=== PATIENT | female | born 1990 | race Caucasian/White ===

== ENCOUNTER → 2017-01-22 | Outpatient (CLI) | payer BC ==
[~2017-01-22] MED LIST: BCPILLS PO; SPR28
== END | disposition home or self-care (01) ==
LOC: C.PAPS 15:13
PROVIDERS: ATTEND Obstetrics & Gynecology
DX: Z01.419 Encounter for gynecological examination (general) (routine) without abnormal findings (principal)

== ENCOUNTER 2024-06-06 09:02 | Inpatient (IN) ==
[2024-06-06] MEDS ORDERED: LIDOCAINE 1% LOCAL 20 ML VIAL INFIL PRN (10:19)
--- NOTE | 2024-06-06 10:22 | History & Physical Report ---
Date of Service June 06, 2024 Assessment & Plan (1) : Plan: Admit to L&D. EFM/toco. Labs. Not sure if she'd like to do epidural or not - would like to be able to get up and move around. Discussed plan - wants to try to avoid interventions if possible, such as pitocin. Discussed post-delivery pitocin to prevent hemorrhage, agrees to this. History of Present Illness Chief Complaint: contractions Primary Care Provider: NO PCP 33yo @ 40 2/7, contractions overnight. No leaking. No bleeding. + movement. Allergies Allergy/AdvReac Type Severity Reaction Status Date / Time No Known Allergies Allergy NONE Verified 06/06/24 09:18 Home Medications Medication Instructions Recorded Confirmed Type vits no.124-ferrous fum 1 tab PO DAILY 06/06/24 06/06/24 History 27 mg iron-folic acid 800 mcg tablet ( Vitamin) Patient History Medical History (Updated 06/06/24 @ 10:23 by Callie Arreaga, DO) Chlamydia 2012 Miscarriage Acute costochondritis History of chicken pox Varicella vaccine Surgical History (Updated 01/01/24 @ 12:05 by Yessica Galeano MD, FACOG) S/P breast biopsy, left fibroadenoma S/P wisdom tooth extraction Family History (Updated 06/06/24 @ 09:24 by Laura Mares RN) Father Hyperlipidemia Grandfather (Maternal) Lung disease lung cancer Stroke Grandmother (Paternal) No problems noted. Grandfather (Paternal) Lung disease lung cancer Denies family history of Ovarian cancer Prostate cancer Breast cancer Colorectal cancer Social History (Updated 12/30/23 @ 14:47 by Mercedez Magana LPN) Smoking Status: Former smoker Do You Dip or Chew Tobacco: No; Hx Alcohol Use: No Hx Substance Use: No Preferred Language: Maltese [employer] Manager Required: No Beliefs That Will Affect Care: Yarsani marital status: marital status details: Spouse Iván Mcdonald ([phone] Current Living Situation: Spouse Current Living Situation Comment: lives with and 3 dogs current occupational status: employed 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 No s/s chorio or abruption. Skin: no rashes, warm and dry Psychiatric: A+Ox3, euthymic affect Results & Data Vital Signs (Past 12 Hours) Vital Signs Temp Pulse Resp BP 06/06/24 09:11 88 121/82 06/06/24 09:10 18 06/06/24 09:10 36.4 C L 18 Coding Level of Care Code None Diagnoses Z34.90
[2024-06-06 11:06] LABS: Hematocrit (blood only) 42.1 % (37.0-47.0); Hemoglobin 14.1 g/dl (12.0-16.0); Mean Corpuscular Hemoglobin 26.7 pg (25.0-34.0); Mean Corpuscular Hgb Conc 33.5 g/dL (32.0-36.0); Mean Corpuscular Volume 79.7 fL (80.0-100.0); Mean Platelet Volume 10.5 fL (9.4-12.4); Platelet Count 196 K/uL (130-400); RDW Coefficient of Variation 14.2 % (11.5-14.5); RDW Standard Deviation 40.8 fL (36.4-46.3); Red Blood Count 5.28 M/uL (4.20-5.40); White Blood Count 14.02 K/ul (4.8-10.8)
[2024-06-06] MEDS: SODIUM CHLORIDE 0.9% 1,000 ML IV SCH (12:30)
[2024-06-06] MEDS ORDERED: NALOXONE HCL 0.4 MG/1 ML VIAL/CARP IV PRN (12:40)
[2024-06-06] MEDS ORDERED: fentaNYL citrate PF 100 MCG/2 ML VIAL EPI PRN (12:40)
[2024-06-06] MEDS ORDERED: NALOXONE HCL 1 MG in SODIUM CHLORIDE 0.9% 1,000 ML IV PRN (12:40)
[2024-06-06] MEDS ORDERED: LIDOCAINE 2% MPF LOCAL 5 ML VIAL EPI PRN (12:40)
[2024-06-06] MEDS ORDERED: NALBUPHINE HCL INJ 10 MG/ML AMP IV PRN (12:40)
[2024-06-06] MEDS ORDERED: ePHEDrine sulfate 50 MG/ML AMP IV PRN (12:40)
[2024-06-06] MEDS ORDERED: diphenhydrAMINE 50 MG/ML VIAL IV PRN (12:40)
[2024-06-06] MEDS ORDERED: BUPIVACAINE 0.25% PF 30 ML VIAL EPI PRN (12:40)
[2024-06-06] MEDS ORDERED: ROPIVACAINE 0.5% PF 5 MG/ML 20 ML VIAL EPI PRN (12:40)
[2024-06-06] MEDS ORDERED: SODIUM CHLORIDE 0.9% PF INJ 10 ML VIAL EPI PRN (12:40)
--- NOTE | 2024-06-06 12:46 | Anesthesiology Consultation ---
Date of Service June 06, 2024 Assessment & Plan Chart Review Chart Review: Patient NOT seen in Pre Admission Testing and Acceptable Risk for Labor Epidural Consults Requested none ASA ASA2 Proposed Anesthesia Anesthesia Type: Labor Epidural Risk / Benefits Reviewed With: PT / POA / Parent / Guardian, Accepts Plan and Informed Consent Obtained History Height/Weight Height: 5 ft 9 in Weight: 81.465 kg Allergies Allergy/AdvReac Type Severity Reaction Status Date / Time No Known Allergies Allergy NONE Verified 06/06/24 09:18 Medications Home Medications Medication Instructions Recorded Confirmed Last Taken vits no.124-ferrous fum 1 tab PO DAILY 06/06/24 06/06/24 Unknown 27 mg iron-folic acid 800 mcg tablet ( Vitamin) NPO Date Last Intake of Fluids: 06/06/24 Time Last Intake of Fluids: 12:00 Date Last Intake of Solids: 06/06/24 Time Last Intake of Solids: 07:00 Past Medical History Medical History Chlamydia 2011 Miscarriage Acute costochondritis History of chicken pox Varicella vaccine Exercise / Class Metabolic Activity 1 > 8 Run/Swim/Ski/Tennis Past Family History Family History Father Hyperlipidemia Grandfather (Maternal) Lung disease lung cancer Stroke Grandmother (Paternal) No problems noted. Grandfather (Paternal) Lung disease lung cancer Denies family history of Ovarian cancer Prostate cancer Breast cancer Colorectal cancer Past Surgical History Surgical History S/P breast biopsy, left fibroadenoma S/P wisdom tooth extraction Past Anesthesia History No Hx of Anesthesia Complications, No Family Hx of Anesthesia Complications and Other History of PONV No Hx of PONV and No Hx of Motion Sickness Social History Smoking Status: Former smoker Do You Dip or Chew Tobacco: No Hx Alcohol Use: No Hx Substance Use: No Review of Systems ROS Unobtainable: All systems reviewed & are unremarkable except as noted in HPI & below Musculoskeletal: no muscle weakness Physical Exam Vital Signs Last Vital Signs Temp 36.4 C L 06/06/24 09:10 Pulse 72 06/06/24 12:40 Resp 18 06/06/24 09:10 BP 121/82 06/06/24 09:11 Pulse Ox 100 06/06/24 12:40 ENMT Mouth: no TMJ abnormality Thyromental Distance: > or= 3.5 Finger Breadths Mallampati Class: II Neck normal visual inspection and trachea midline; neck extension not limited Respiratory normal respiratory effort Auscultation: lungs clear to auscultation bilaterally Cardiovascular Rate/Rhythm: regular rate and regular rhythm Heart Sounds: no murmur Musculoskeletal Spine: normal cervical ROM Extremities: full ROM of extremities Neurologic moves all extremities Psychiatric Orientation: alert and oriented x 3 Testing Laboratory Results 06/06/24 10:37
[2024-06-06] MEDS: LIDOCAINE 2%/EPINEPHRINE 1:200,000 20 ML PF EPI STA (13:14)
[2024-06-06] MEDS: fentaNYL citrate PF 100 MCG/2 ML VIAL EPI STA (13:15)
[2024-06-06] MEDS: fentANYL 2 MCG/ML BUPIVacaine 0.125%-NSS 100ML BAG EPI PRN (13:15)
[2024-06-06] MEDS: BUPIVACAINE 0.25% PF 30 ML VIAL EPI STA (13:15)
--- NOTE | 2024-06-06 14:30 | Labor Progress Brief Note ---
Date of Service June 06, 2024 Subjective Comfortable after epidural. FHT Cat 1 [place] difficult to trace, but appears to be Q 2-3 SVE 7-8/100/0, bloody show AROM clear fluid. Continue labor. Assessment & Plan Admission and Anticipated Discharge Date Admission Date: June 06, 2024 Results & Data Vital Signs (Past 12 Hours) Vital Signs Temp Pulse Resp BP Pulse Ox 06/06/24 14:25 78 100 06/06/24 14:20 83 100 06/06/24 14:15 84 100 06/06/24 14:11 81 101/55 L 06/06/24 14:10 75 100 06/06/24 14:05 89 100 06/06/24 14:00 65 100 06/06/24 13:56 94 H 98/57 L 06/06/24 13:55 89 100 06/06/24 13:50 81 100 06/06/24 13:45 88 18 100 06/06/24 13:41 103/66 06/06/24 13:40 82 100 06/06/24 13:35 83 100 06/06/24 13:30 75 100 06/06/24 13:25 90 105/57 L 100 06/06/24 13:22 89 105/58 L 06/06/24 13:20 88 100 06/06/24 13:19 82 109/56 L 06/06/24 13:17 88 109/64 06/06/24 13:15 77 18 100 06/06/24 13:13 71 140/78 06/06/24 13:11 81 118/74 06/06/24 13:10 76 99 06/06/24 13:06 84 88 L 06/06/24 13:05 89 100 06/06/24 13:00 78 100 06/06/24 12:55 64 100 06/06/24 12:50 69 100 06/06/24 12:49 75 106/65 06/06/24 12:45 88 99 06/06/24 12:40 72 100 06/06/24 12:35 72 100 06/06/24 12:30 64 100 06/06/24 09:11 88 121/82 06/06/24 09:10 18 06/06/24 09:10 36.4 C L 18 Coding Level of Care Code None
[2024-06-06] MEDS: LIDOCAINE 2%/EPINEPHRINE 1:200,000 20 ML PF ONE (15:27)
[2024-06-06] MEDS: fentaNYL citrate PF 100 MCG/2 ML VIAL ONE (15:27)
[2024-06-06] MEDS: ePHEDrine sulfate 50 MG/ML AMP ONE (15:27)
[2024-06-06] MEDS: BUPIVACAINE 0.25% PF 30 ML VIAL ONE (15:27)
[2024-06-06] MEDS: fentANYL 2 MCG/ML BUPIVacaine 0.125%-NSS 100ML BAG ONE (15:27)
[2024-06-06] MEDS: SODIUM CHLORIDE 0.9% PF INJ 10 ML VIAL ONE (15:28)
[2024-06-06] MEDS: SODIUM CHLORIDE 0.9% PF INJ 10 ML VIAL EPI STA (15:28)
--- NOTE | 2024-06-06 17:22 | Labor Progress Brief Note ---
Date of Service June 06, 2024 Subjective Comfortable. FHT Cat 1 [place] Q 2 SVE 10/100/+1 Starting to push. Assessment & Plan Admission and Anticipated Discharge Date Admission Date: June 06, 2024 Results & Data Vital Signs (Past 12 Hours) Vital Signs Temp Pulse Resp BP Pulse Ox 06/06/24 17:20 103 H 100 06/06/24 17:15 105 H 100 06/06/24 17:14 94 H 81 L 06/06/24 17:10 78 100 06/06/24 17:05 85 100 06/06/24 17:00 67 100 06/06/24 16:55 85 99/53 L 100 06/06/24 16:54 71 92 06/06/24 16:50 88 95 06/06/24 16:45 93 H 18 100 06/06/24 16:40 75 102/58 L 100 06/06/24 16:35 84 100 06/06/24 16:33 72 97/58 L 06/06/24 16:31 76 91 06/06/24 16:30 88 100 06/06/24 16:25 85 100 06/06/24 16:20 85 100 06/06/24 16:15 70 100 06/06/24 16:12 71 103/59 L 06/06/24 16:10 69 100 06/06/24 16:05 87 100 06/06/24 16:00 85 99 06/06/24 15:57 86 99/53 L 06/06/24 15:55 83 100 06/06/24 15:51 81 91 06/06/24 15:50 80 99 06/06/24 15:45 90 18 97 06/06/24 15:41 69 107/57 L 06/06/24 15:40 77 100 06/06/24 15:35 69 96 06/06/24 15:30 72 100 06/06/24 15:27 63 113/56 L 06/06/24 15:25 63 100 06/06/24 15:20 79 100 06/06/24 15:15 77 18 100 06/06/24 15:10 67 112/63 100 06/06/24 15:05 67 100 06/06/24 15:00 88 100 06/06/24 14:57 70 102/61 06/06/24 14:55 70 100 06/06/24 14:50 78 100 06/06/24 14:45 78 18 100 06/06/24 14:40 91 H 98 06/06/24 14:35 77 100 06/06/24 14:30 98 H 100 06/06/24 14:25 36.7 C 78 100 06/06/24 14:20 83 100 06/06/24 14:15 84 100 06/06/24 14:11 81 101/55 L 06/06/24 14:10 75 100 06/06/24 14:05 89 100 06/06/24 14:00 65 100 06/06/24 13:56 94 H 98/57 L 06/06/24 13:55 89 100 06/06/24 13:50 81 100 06/06/24 13:45 88 18 100 06/06/24 13:41 103/66 06/06/24 13:40 82 100 06/06/24 13:35 83 100 06/06/24 13:30 75 100 06/06/24 13:25 90 105/57 L 100 06/06/24 13:22 89 105/58 L 06/06/24 13:20 88 100 06/06/24 13:19 82 109/56 L 06/06/24 13:17 88 109/64 06/06/24 13:15 77 18 100 06/06/24 13:13 71 140/78 06/06/24 13:11 81 118/74 06/06/24 13:10 76 99 06/06/24 13:06 84 88 L 06/06/24 13:05 89 100 06/06/24 13:00 78 100 06/06/24 12:55 64 100 06/06/24 12:50 69 100 06/06/24 12:49 75 106/65 06/06/24 12:45 88 99 06/06/24 12:40 72 100 06/06/24 12:35 72 100 06/06/24 12:30 64 100 06/06/24 09:11 88 121/82 06/06/24 09:10 18 06/06/24 09:10 36.4 C L 18 Coding Level of Care Code None
[2024-06-06] MEDS: OXYTOCIN 30 UNITS/NSS 30 UNITS/500 ML BAG IV PRN (18:20)
--- NOTE | 2024-06-06 19:10 | Delivery Summary ---
Vaginal Delivery Summary Date of Service June 06, 2024 Vaginal Delivery Summary and 2nd Degree LAC Vaginal Delivery Summary: Pre-delivery diagnoses: 33yo @ 40 2/, spontaneous labor Post-delivery diagnoses: same Procedure: spontaneous vaginal delivery Surgeon: Callie Arreaga DO Complications: none Findings: Viable female . Apgars: 8/9 . Weight pending, please see nursery records Estimated QBL: 208ml Description of delivery: The patient progressed to complete with epidural anesthesia. She then began to push. She spontaneously vaginally delivered a viable from the cephalic presentation. The head delivered in SHOBHA position. The anterior shoulder delivered, followed by the posterior shoulder, followed by the body. No nuchal cord. The baby was placed on mother's abdomen and a spontaneous cry was heard. Delayed cord clamping was employed - 5 minutes per patient wishes, and the cord was doubly clamped and cut. Cord blood was obtained. The placenta was delivered spontaneously intact with a 3-vessel cord. The uterus and vagina were swept of clots and debris. IV pitocin was given. The uterus became firm. The cervix, vagina, and perineum were inspected. 2nd degree perineal laceration and bilateral vaginal lacerations were noted and repaired with 3-0 Vicryl. Excellent hemostasis was observed. The mother and baby are recovering in stable and good condition in the room. Sponge, needle and instrument counts were correct x 2. Callie Arreaga DO [facility] Vaginal Delivery Charge Vaginal Delivery Codes: 70976 global code for the antepartum, delivery, and post- Delivery Type Details: and 2nd Degree LAC
[2024-06-06] MEDS ORDERED: HYDROCORTISONE ACETATE 25 MG SUPP PR PRN (19:43)
[2024-06-06] MEDS ORDERED: ACETAMINOPHEN 325 MG TAB PO PRN (19:43)
[2024-06-06] MEDS ORDERED: oxyCODONE/ACETAMINOPHEN 5mg/325mg TAB PO PRN (19:43)
[2024-06-06] MEDS ORDERED: OXYTOCIN 30 UNITS/NSS 30 UNITS/500 ML BAG IV PRN (19:43)
[2024-06-06] MEDS ORDERED: bisacodyL 10 MG SUPP PR PRN (19:43)
[2024-06-06] MEDS: DIPHTHER/TETAN/PERTUS Vaccine (Tdap, Adol/Adult) 0.5mL IM ONE (21:08)
[2024-06-06] MEDS: DOCUSATE SODIUM 100 MG CAP PO SCH (21:08)
[2024-06-06] MEDS: BENZOCAINE 20% SPRY 85 APPLN/85 GM CAN EXT PRN (21:08)
--- NOTE | 2024-06-07 05:55 | Anesthesia Procedure Note ---
Date of Service June 07, 2024 Anesthesia Post Epidural Note Vital Signs Vital Signs: Temp Pulse Resp BP Pulse Ox O2 Del Method 36.6 C 90 16 109/64 100 Room Air 06/07/24 03:08 06/07/24 03:08 06/07/24 03:08 06/07/24 03:08 06/06/24 18:50 06/06/24 23:00 Notes Mental Status: alert / awake / arousable and participated in evaluation Nausea / Vomiting: adequately controlled Pain: adequately controlled Airway Patency, RR, SpO2: stable & adequate BP & HR: stable & adequate Hydration State: stable & adequate Neuraxial Anesthesia: was administered and sensory block resolved Anesthetic Complications: no major complications apparent and Pt Satisfied with anesthetic care Epidural: Removed without complications and With tip intact
[2024-06-07 07:16] LABS: Hematocrit (blood only) 28.9 % (37.0-47.0); Hemoglobin 9.7 g/dl (12.0-16.0)
[2024-06-07] MEDS: PRENATAL VITAMIN 1 TAB PO SCH (07:35)
--- NOTE | 2024-06-07 08:14 | Obstetrical Progress Note ---
Date of Service June 07, 2024 Assessment & Plan (1) : PPD#1 doing well. Ambulating well. No dizziness/weakness. Small lochia. Hgb drop 14.1 to 9.7. Vitals wnl. Suspect hemoconcentration at admission, will recheck in AM tomorrow. Anticipate DC home tomorrow. Subjective Ambulation: ambulating normally Voiding: no voiding problems Diet Tolerance:: regular diet Lochia:: Moderate Review of Systems All systems reviewed & are unremarkable except as noted in HPI & below Physical Exam Constitutional WD/WN, vitals as above no acute distress Respiratory normal respiratory effort Cardiovascular Rate/Rhythm: regular rate and regular rhythm Gastrointestinal (Abdomen) Inspection/Auscultation: abdomen normal to inspection; abdomen not distended Percussion/Palpation: abdomen soft Genitourinary OB Exam Abdomen: + fundal height Fundus: + firm; not tender Results & Data Vital Signs (Past 12 Hours) Vital Signs Temp Pulse Pulse Resp BP BP Pulse Ox 06/07/24 07:27 36.8 C 79 16 103/66 99 06/07/24 03:08 36.6 C 90 16 109/64 06/06/24 23:00 36.4 C L 90 18 111/67 06/06/24 22:00 113 H 111/64 06/06/24 21:07 108 H 111/62 06/06/24 21:05 18 06/06/24 20:37 129 H 101/56 L 06/06/24 20:35 18 06/06/24 20:18 136 H 105/56 L O2 Del Method 06/07/24 07:27 Room Air 06/07/24 03:08 06/06/24 23:00 Room Air 06/06/24 22:00 06/06/24 21:07 06/06/24 21:05 06/06/24 20:37 06/06/24 20:35 06/06/24 20:18
[2024-06-07] MEDS: IBUPROFEN 600 MG TAB PO PRN (12:32)
[2024-06-07 19:01] VITALS: TEMP 97.9
[2024-06-07] MEDS: bisacodyL 5 MG TABEC PO SCH (20:26)
[2024-06-07 22:51] VITALS: RESP 18
[2024-06-08 06:15] LABS: Hematocrit (blood only) 28.6 % (37.0-47.0); Hemoglobin 9.5 g/dl (12.0-16.0)
--- NOTE | 2024-06-08 06:43 | Obstetrical Progress Note ---
Date of Service June 08, 2024 Assessment & Plan (1) Encounter for assessment: Plan: Patient is PPD 2 s/p and doing well - Eating well, voiding well, ambulating well - vitals reviewed and within normal limits - pain well controlled with analgesics - OOB, ambulation, diet progression as tolerated - Blood type: O+, GBS neg, rubella immune - Plan to discharge today - After discharge, 6 week follow up with OBGYN Admission and Anticipated Discharge Date Admission Date: June 06, 2024 Supervising Physician Co-Signing Physician Notes Resident Physician Supervision Note: I was present with Dr. Garnica during the history and exam. I discussed the case with the resident and agree with the findings and plan as documented in the note. Any exceptions or clarifications are listed here: PPD#2 doing well. Hgb stable. Vitals stable. DC home, instructions reviewed. Followup PP 6w. Documented By: Callie Arreaga, DO Subjective 33 yo post- day 2 s/p Ambulation: ambulating normally Voiding: no voiding problems Passing Gas:: Yes Diet Tolerance:: regular diet Lochia:: Small Feeding Type:: breast feeding Current Pain Level:3/10 Resting comfortably this AM in NAD. Denies [place], CP, SOB, N/V/D, LE pain/swelling. Physical Exam Physical Exam: General: patient resting comfortably, NAD, non-toxic in appearance, answers questions appropriately. Skin: warm, dry, intact HEENT: NC/AT, anicteric sclera, conjunctiva without injection, moist mucus membranes. Heart: +S1/S2, regular, no m/r/g Lungs: equal air entry bilaterally, no rales/rhonchi/wheezes Abd: +BS, soft, NT/ND, uterine fundus firm at umbilicus Ext: warm, no clubbing/cyanosis or edema, Pablito's neg. Neuro: nonfocal, speech intact, no facial droop, moving all extremities. Results & Data Vital Signs (Past 12 Hours) Vital Signs Temp Pulse Resp BP Pulse Ox O2 Del Method 06/07/24 22:49 36.6 C 87 18 106/66 97 Room Air 06/07/24 20:30 Room Air 06/07/24 18:59 36.6 C 83 16 108/72 98 Room Air Resident Activity Tracking Resident Involvement: Resident Care Provided Care Provided: OB Delivery
[2024-06-08 07:21] VITALS: BP 115/74; PULSE 69; O2SAT 99
== END 2024-06-08 11:37 | disposition home or self-care (01) | DRG 807 ==
LOC: OPB 09:02 → 4S1 09:03 → 4E2 22:10